=== PATIENT | female | born 2005 | race Caucasian/White ===

== ENCOUNTER 2023-07-19 14:58 | Inpatient (IN) | payer OTHER, SELFPAY ==
--- NOTE | ~2023-07-19 | CT_ITS ---
EXAMINATION: CT soft tissue neck w con DATE: 07/20/2023 11:43 INDICATION: Possible facial abscess TECHNIQUE: Computed tomography (CT) of the neck was performed with 75 cc of Omnipaque 350 intravenous contrast. The dose-length product (DLP) was 491.95 mGy-cm. Automated exposure control and iterative reconstruction technique were employed. COMPARISON: None FINDINGS: There is an approximately 1.5 cm soft tissue abscess or phlegmon overlying the body of the right mandible. There is a moderate amount of surrounding soft tissue edema. There is mild right subm andibular lymphadenopathy. The osseous structures are unremarkable. The vascular structures are gina l. IMPRESSION: 1. 1.5 cm soft tissue abscess or phlegmon overlying the right mandible. Reviewed, dictated and finalized at location A. IFI[employer] ACTIVITIES DIRECTOR
[2023-07-19 15:04] VITALS: BP 143/77; PULSE 101; RESP 18; TEMP 36.6; O2SAT 100
--- NOTE | 2023-07-19 15:10 | ED.GENADULT ---
HPI - General Adult General Chief complaint: Skin/Abscess/Foreign Body Stated complaint: abcess Time Seen by Provider: 07/19/23 15:02 Source: patient and family Mode of arrival: ambulatory Limitations: no limitations History of Present Illness HPI narrative: 18 yo F with history of cutting herself (not for suicide but as coping mechanism when she feels bad), presents to ED from urgent care due to infection in her right lower face. First started as a pimple in the right lower face/chin area that she picked on. Then developed into an infection with progressive swelling, erythema, pain. Went to Urgent Care and was prescribed Augmentin without improvement. Related Data Allergies Allergy/AdvReac Type Severity Reaction Status Date / Time No Known Allergies Allergy Verified 02/11/23 08:00 Review of Systems Constitutional: Constitutional: Reports as per HPI and Reports no additional constitutional complaints Eyes: Eyes: Reports as per HPI and Reports no additional eye complaints ENT: Reports system reviewed and no additional complaints, except as documented and Reports as per HPI Cardiovascular: Cardiovascular: Reports as per HPI and Reports no additional cardiovascular complaints Respiratory: Respiratory: Reports as per HPI and Reports no additional respiratory complaints Gastrointestinal: Gastrointestinal: Reports as per HPI and Reports no additional gastrointestinal complaints Genitourinary: Genitourinary: Reports as per HPI Musculoskeletal: Musculoskeletal: Reports no additional musculoskeletal complaints and Reports as per HPI Integumentary/Breasts: Skin/Breast: Reports system reviewed and no additional complaints, except as docu and Reports as per HPI Neurologic: Reports system reviewed and no additional complaints, except as documented and Reports as per HPI Psychiatric: Psychiatric: Reports no additional psychiatric complaints and Reports as per HPI Endocrine: Endocrine: Reports no additional endocrine complaints and Reports as per HPI Hematologic/Lymphatic: Hematologic/Lymphatic: Reports no additional hematologic/lymphatic complaints and Reports as per HPI Allergic/Immunologic: Allergic/Immunologic: Reports no additional allergic/immunologic complaints and Reports as per HPI PMFSH Social History Social History Smoking status: Never smoker Alcohol intake: never Substance use: current Substance use type: marijuana Living arrangements: with family Gender identity (if verbalized by the patient): Female Exam Const: General: cooperative, healthy appearing, comfortable, no acute distress, well developed, alert, awake, average body habitus and well nourished Nutritional Appearance: average body habitus and well nourished Orientation/consciousness: oriented to person, oriented to place and oriented to time Limitations: no limitations HENMT: Head: normal to inspection Ears: hearing grossly normal bilaterally, external ears normal and TM's normal bilaterally Face/Nose/Sinus: Normal external nose present, Normal nares present, No nasal polyps present, Normal nasal mucous membranes and turbinates present, Normal septum present, No nasal discharge present, normal facial exam, sinuses nontender and face symmetric Face and sinus: normal facial exam, sinuses nontender and face symmetric Mouth: Yes Normal oral and palatal mucosa present, Yes lip normal, Yes tongue normal, Yes Normal salivary glands and ducts present, Yes oropharynx normal and Yes moist mucous membranes Teeth and gingiva: dentition normal and gingiva normal Throat: posterior oropharynx normal, tonsils normal and uvula midline Other: Swelling, redness, induration in the right lower face Eyes: General: appearance normal, both eyes and all related structures Eyelids: eyelids normal Conjunctivae: conjunctivae normal Sclera: sclerae normal Cornea: corneas normal Pupils: Equal, round and lisy
[2023-07-19] MEDS: MORPHINE SULFATE (*CRX) 4 MG/ML INJ IV PUSH (15:39)
[2023-07-19 15:49] LABS: Basophils Absolute Auto 0.04 K/mm3 (0.00-0.10); Basophils Percent Auto 0.3 % (0.0-1.0); Eosinophils Absolute Auto 0.17 K/mm3 (0.02-0.50); Eosinophils Percent Auto 1.4 % (1.0-6.0); Hematocrit 41.8 % (35.0-49.0); Hemoglobin 13.7 g/dL (12.0-15.0); Immature Granulocyte Absolute 0.05 K/mm3 (0.00-0.00); Immature Granulocyte Percent A 0.4 % (0.0-0.0); Lymphocytes Absolute Auto 1.77 K/mm3 (1.10-4.50); Lymphocytes Percent Auto 14.9 % (18.0-42.0); Mean Corpuscular HGB Conc 32.8 g/dL (32.0-36.0); Mean Corpuscular Hemoglobin 29.8 pg (27.0-31.0); Mean Corpuscular Volume 91.1 fL (78.0-102.0); Mean Platelet Volume 10.4 fl (9.2-11.8); Monocytes Absolute Auto 0.67 K/mm3 (0.10-0.90); Monocytes Percent Auto 5.7 % (2.0-11.0); Neutrophils Absolute Auto 9.1 K/mm3 (1.7-7.2); Neutrophils Percent Auto 77.3 % (50.0-70.0); Platelet Count Result 400 K/mm3 (150-420); Red Blood Count 4.59 M/mm3 (4.20-5.40); Red Cell Distribution Width 12.5 % (11.6-14.4); White Blood Count 11.8 K/mm3 (4.8-10.8)
[2023-07-19] MEDS: MORPHINE SULFATE (*CRX) 2 MG/ML INJ IV PUSH (15:55)
[2023-07-19 15:58] LABS: Alanine Aminotransferase 38 U/L (14-59); Albumin Level 3.6 g/dL (3.4-5.0); Alkaline Phosphatase 80 U/L (46-116); Anion Gap 9 mmol/L (8-16); Aspartate Amino Transferase 22 U/L (15-37); Bilirubin,Total 0.7 mg/dL (0.00-1.00); Blood Urea Nitrogen 12 mg/dL (7-18); Calcium 8.5 mg/dL (8.5-10.1); Carbon Dioxide 30 mmol/L (21-32); Chloride 99 mmol/L (98-108); Estimated CRCL calculation 69 ml/min; Estimated Glomerular Filt Rate > 60; Glucose 253 mg/dL (70-99); Osmolality Calculated 294 mOsm/kg (285-295); Potassium 3.8 mmol/L (3.5-5.1); Sodium 138 mmol/L (136-145); Total Protein 8.3 g/dL (6.4-8.2)
[2023-07-19 16:30] VITALS: BP 96/52; PULSE 87; RESP 20; TEMP 37.2; O2SAT 98
[2023-07-19 16:36] VITALS: PULSE 105; RESP 18; O2SAT 100
--- NOTE | 2023-07-19 16:45 | PC.NURSE ---
Patient arrived to unit in w/c from ED. Patient able to transfer from w/c to bed without assist. Patient educated on isolation practices, call light, bed controls, hospital policies, including rapid response, visiting hours, and fall precautions. Patient and her mother voiced understanding. Patient has a cell phone, and clothes. No other personal items noted.
[2023-07-19 16:53] VITALS: BMI 24.7
[2023-07-19 17:07] LABS: Hemoglobin A1C 5.5 % (<5.7)
[2023-07-19] MEDS: MORPHINE SULFATE (*CRX) 2 MG/ML INJ 4 MG IV PUSH (17:09)
[2023-07-19 17:10] LABS: Lactic Acid Reflex 1.4 mmol/L (0.4-2.0)
[2023-07-19 19:57] VITALS: TEMP 39
[2023-07-19] MEDS: ACETAMINOPHEN 325 MG TABLET 650 MG PO (19:57)
[2023-07-19 20:00] VITALS: PULSE 127; RESP 18; O2SAT 100
--- NOTE | 2023-07-19 20:00 | PC.NURSE ---
Pt temp noted to be 102.2, PRN PO Tylenol given per order, cool rag and ice pack given for comfort, Pulse noted to be 127. Snack given. Will recheck VS.
[2023-07-19 20:52] VITALS: TEMP 37.6
--- NOTE | 2023-07-19 21:25 | PC.NURSE ---
Pt aware of negative test, teaching given on interaction between contraceptives and antibiotics, patient aware to use alternate barrier method of BC.
[2023-07-19 21:50] LABS: Pregnancy On Board Control Positive; Urine Pregnancy Test Negative
[2023-07-19] MEDS: LACTATED RINGERS 1,000 ML 999 ML IV CONT (22:16)
[2023-07-19] MEDS: SODIUM CHLORIDE 0.9% IV 1,000 ML 999 ML IV CONT (22:17)
[2023-07-19 22:27] LABS: Glucose Point of Care 158 mg/dl (65-105)
[2023-07-20] VITALS: BP 118/72; PULSE 120; RESP 17; TEMP 36.8; O2SAT 100
[2023-07-20 00:32] VITALS: PULSE 98
--- NOTE | 2023-07-20 06:51 | PC.NURSE ---
Patient was running a fever of 102 with a HR of 127 at 1999. Patient was given tylenol, and fever came down to 99.7, with HR of 120. SALES SERVICE PROFESSIONAL was notified, and ordered 2L bolus of normal saline and lactated ringers. Temperature came down to 98.2, with HR of 98. Patient was given education regarding control and its efficacy on antibiotics. Patient slept well.
[2023-07-20 08:00] VITALS: BP 107/69; PULSE 101; RESP 16; TEMP 37.2; O2SAT 99
[2023-07-20 08:01] LABS: Basophils Absolute Auto 0.03 K/mm3 (0.00-0.10); Basophils Percent Auto 0.3 % (0.0-1.0); Eosinophils Percent Auto 0.9 % (1.0-6.0); Hematocrit 34.3 % (35.0-49.0); Hemoglobin 11.4 g/dL (12.0-15.0); Immature Granulocyte Absolute 0.04 K/mm3 (0.00-0.00); Immature Granulocyte Percent A 0.4 % (0.0-0.0); Lymphocytes Absolute Auto 2.08 K/mm3 (1.10-4.50); Lymphocytes Percent Auto 19.5 % (18.0-42.0); Mean Corpuscular HGB Conc 33.2 g/dL (32.0-36.0); Mean Corpuscular Hemoglobin 30.2 pg (27.0-31.0); Mean Corpuscular Volume 90.7 fL (78.0-102.0); Mean Platelet Volume 10.7 fl (9.2-11.8); Monocytes Absolute Auto 0.87 K/mm3 (0.10-0.90); Monocytes Percent Auto 8.2 % (2.0-11.0); Neutrophils Absolute Auto 7.6 K/mm3 (1.7-7.2); Neutrophils Percent Auto 70.7 % (50.0-70.0); Platelet Count Result 320 K/mm3 (150-420); Red Blood Count 3.78 M/mm3 (4.20-5.40); Red Cell Distribution Width 12.4 % (11.6-14.4); White Blood Count 10.7 K/mm3 (4.8-10.8)
[2023-07-20 08:17] LABS: Alanine Aminotransferase 24 U/L (14-59); Albumin Level 2.7 g/dL (3.4-5.0); Alkaline Phosphatase 61 U/L (46-116); Anion Gap 5 mmol/L (8-16); Aspartate Amino Transferase 13 U/L (15-37); Bilirubin,Total 0.9 mg/dL (0.00-1.00); Blood Urea Nitrogen 6 mg/dL (7-18); Calcium 8.4 mg/dL (8.5-10.1); Carbon Dioxide 31 mmol/L (21-32); Chloride 103 mmol/L (98-108); Estimated CRCL calculation 79 ml/min; Estimated Glomerular Filt Rate > 60; Glucose 146 mg/dL (70-99); Osmolality Calculated 288 mOsm/kg (285-295); Potassium 3.8 mmol/L (3.5-5.1); Sodium 139 mmol/L (136-145); Total Protein 6.5 g/dL (6.4-8.2)
[2023-07-20] MEDS: HYDROcodone/acetaminophen (*CRX) 5-325 MG TABLET 1 TAB PO (08:47)
--- NOTE | 2023-07-20 08:58 | PM.IMHP ---
H&P: HPI History of Present Illness Date/Time: 07/20/23 08:58 Chief Complaint: Facial abscess Narrative: This is a previously healthy 18-year-old female patient who is admitted to the hospital due to right chin/face abscess that started on 07/15 and patient states she kept picking at it. Patient came to the emergency department last night and had incision and drainage of right chin abscess completed in the emergency department. She was febrile and tachycardic. White blood cell count elevated. Patient was started on vancomycin by ED physician and she was admitted to the floor for IV antibiotics and observation. Patient continued to be febrile overnight. She received 2 L of IV fluids bolus due to sustained tachycardia despite fever control. Patient reports she is able to eat and drink normally. She has no difficulty breathing or swallowing. Patient reports no intraoral drainage or break in the skin inside the mouth. Patient denies any swelling under the tongue or tenderness to palpation under the tongue. Patient denies any vision changes or pain with extraocular movements. She reports normal phonation from the throat, muffling noted due to oral swelling. No sore throat. No tenderness to palpation of the neck, right sided cervical lymphadenopathy noted. Buccal swelling and firmness with significant tenderness to palpation. Concern for buccal abscess. No mastoid swelling/tenderness. Continued wound drainage from I&D site noted. Wound culture and blood cultures drawn/in process. Patient denies any chest pain, breathing problems, nausea/vomiting, constipation/diarrhea, leg pain/swelling. Urine is negative. WBC trending downward. Ordered CT soft tissue neck with contrast to look for deeper space abscess that would benefit from facial surgery. Added IV dexamethasone and IV Unasyn orders. Review of Systems Review of Systems: All systems reviewed & are unremarkable except as noted in HPI and below [facility] Family History Family History Other Diabetes mellitus Social History Social History Smoking status: Never smoker Second hand tobacco smoke exposure: Yes Alcohol intake: current Substance use: current Substance use type: marijuana Last use: 07/16/2023 Lack of Transportation: YES Lack of Food: Sometimes True Current Housing: I Have Housing Concerned About Future Housing: YES Difficulty Paying Gas/Electric Bills: No Difficulty Paying for Meds: YES Currently Unemployed: YES Education: High School Diploma/GED Difficulty w/ Childcare or Family Care: No Living arrangements: with family Gender identity (if verbalized by the patient): Female Spiritual care concerns: No Meds Home Medications and Allergies Home Medications Medication Instructions Recorded Confirmed Type No Home Medications 07/19/23 07/19/23 History Allergies Allergy/AdvReac Type Severity Reaction Status Date / Time No Known Allergies Allergy Verified 02/11/23 08:00 Vital Signs Vital Signs - 24 hr 07/19/23 15:04 07/19/23 16:36 07/19/23 16:30 Temperature 36.6 C 37.2 C Pulse Rate 101 H 105 H 87 Respiratory Rate 18 18 20 Blood Pressure 143/77 H 96/52 L Pulse Oximetry 100 100 98 Oxygen Delivery Room Air Room Air Room Air 07/19/23 19:57 07/19/23 20:52 07/19/23 20:00 Temperature 39.0 C H 37.6 C H Pulse Rate 127 H Respiratory Rate 18 Blood Pressure Pulse Oximetry 100 Oxygen Delivery Room Air 07/20/23 00:00 07/20/23 00:32 07/20/23 08:00 Temperature 36.8 C 37.2 C Pulse Rate 120 H 98 101 H Respiratory Rate 17 16 Blood Pressure 118/72 107/69 Pulse Oximetry 100 99 Oxygen Delivery Room Air Room Air Exam Const: General: cooperative, healthy appearing, comfortable, no acute distress, well developed, alert, awake, average body habitus and well nouris
[2023-07-20] MEDS: VANCOMYCIN 1,250 MG/NS 250 ML 1,250 MG/250 ML BAG 166.67 MG IVPB (10:30)
--- NOTE | 2023-07-20 11:21 | PC.NURSE ---
Patient leaving unit for CT scan.
--- NOTE | 2023-07-20 11:35 | PC.NURSE ---
Patient returned to unit from CT scan.
[2023-07-20] MEDS: AMPICILLIN SULB 3 GM/NS 100 ML 3 GM/100 ML VIAL IVPB (12:28)
--- NOTE | 2023-07-20 12:31 | PM.TDS ---
Transfer Discharge Sum: Prov Provider Date of admission: 07/19/23 16:24 Primary care physician: Jenny Vargas NP Admitting clinician: Deion Mendez MD Attending physician on admission: Kenrick Mendez Attending physician on discharge: Kenrick Mendez Discharging clinician: Ravindra Burnette Anticipated date of transfer: 07/20/23 Receiving physician/facility: Dr. Arshad, admitting Hospitalist. Dr. Tomer Neumann, plastic life skills consultant at [facility] DS: Admitting Diagnosis Discharge Date 07/20/2023 Admitting Diagnosis Facial abscess, facial cellulitis, hyperglycemia DS: Discharge Diagnosis Discharge Diagnosis (1) Facial abscess: Code(s): L02.01 - Cutaneous abscess of face Status: Acute (2) Facial cellulitis: Code(s): L03.211 - Cellulitis of face Status: Acute (3) Hyperglycemia: Code(s): R73.9 - Hyperglycemia, unspecified Status: Acute Plan Transfer to [facility] for facial surgery consult. Patient accepted by hospitalist Dr. Arsahd Transfer Discharge Sum: Med Medications Active and Home Medications: Home Medications No Home Medications 07/19/23 [History Confirmed 07/19/23] Active Medications Acetaminophen (Acetaminophen 325 Mg Tablet) 650 mg PO Q4H PRN PRN Reason: Mild Pain (1-3) or Fever Last Admin: 07/19/23 19:57 Dose: 650 mg Hydrocodone Bitart/Acetaminophen (Hydrocodone/Acetaminophen (*Crx) 5-325 Mg Tablet) 1 tab PO Q4H PRN PRN Reason: Moderate Pain (4-6) Last Admin: 07/20/23 08:47 Dose: 1 tab Bisacodyl (Bisacodyl 5 Mg Tablet Ec) 5 mg PO DAILY PRN PRN Reason: Constipation Vancomycin HCl (Vancomycin 1,250 Mg/Ns 250 Ml) 1,250 mg in 250 mls @ 166.667 mls/hr IVPB Q18H YANCY Last Infusion: 07/20/23 12:25 Dose: Infused Ampicillin Sodium/Sulbactam Sodium (Unasyn 3 Gm/Ns 100 Ml) 3 gm in 100 mls @ 200 mls/hr IVPB Q6H YANCY Last Admin: 07/20/23 12:28 Dose: 200 mls/hr Melatonin (Melatonin 5 Mg Tablet) 5 mg PO HS PRN PRN Reason: insomnia Morphine Sulfate (Morphine Sulfate (*Crx) 2 Mg/Ml Inj) 4 mg IV PUSH Q4H PRN PRN Reason: Pain Rated 7-10 Last Admin: 07/19/23 17:09 Dose: 4 mg Naloxone HCl (Naloxone Hcl 0.4 Mg/Ml Vial) 0.1 mg IV PUSH Q2M PRN PRN Reason: Opiate Reversal Transfer Discharge Sum: Hosp Hospital Course Hospital course: Rand Gonzalez is a previously healthy 18-year-old female patient who is admitted to the hospital due to right chin/face abscess that started on 07/15 and patient states she kept picking at it.? Patient came to the emergency department last night and had incision and drainage of right chin abscess completed in the emergency department.? She was febrile and tachycardic.? White blood cell count elevated.? Patient was started on vancomycin by ED physician and she was admitted to the floor for IV antibiotics and observation.? Patient continued to be febrile overnight.? She received 2 L of IV fluids bolus due to sustained tachycardia despite fever control.? Patient reports she is able to eat and drink normally.? She has no difficulty breathing or swallowing.? Patient reports no intraoral drainage or break in the skin inside the mouth.? Patient denies any swelling under the tongue or tenderness to palpation under the tongue.? Patient denies any vision changes or pain with extraocular movements.? She reports normal phonation from the throat, muffling noted due to oral swelling.? No sore throat.? No tenderness to palpation of the neck, right sided cervical lymphadenopathy noted.? Buccal swelling and firmness with significant tenderness to palpation.? Concern for buccal abscess.? No mastoid swelling/tenderness.? Continued wound drainage from I&D site noted.? Wound culture and blood cultures drawn/in process.? Patient denies any chest pain, breathing problems, nausea/vomiting, constipation/diarrhea, leg pain/swelling.? Urine is negative.? WBC trending downward.? Ordered CT soft
--- NOTE | 2023-07-20 14:54 | PC.NURSE ---
Spoke with Carmita, the connect nurse for [facility] and gave patient's current VS and report. Patient will be going to Room [address] [facility].
--- NOTE | 2023-07-20 15:25 | PC.NURSE ---
SARA here to transfer patient to room 1144. Personal belongings sent with patient. Report given to ADA at [facility]. Patient's mother here at time of transfer and aware of where patient is going.
== END 2023-07-20 15:25 | disposition short-term general hospital (02) | DRG 603 ==
LOC: CHSED 16:21 → CHS2ND 16:28
PROVIDERS: Nurse Practitioner; Admitting Provider Internal Medicine; Emergency Provider Emergency Medicine; PCP Nurse Practitioner Family; Visit Provider Internal Medicine
DX: L02.01 Cutaneous abscess of face (principal); L03.211 Cellulitis of face; R73.9 Hyperglycemia, unspecified; R00.0 Tachycardia, unspecified
CPT/HCPCS: 10060; 36415; 70491; 80053; 81025; 82948; 83036; 83605; 83735; 85025; 87040; 87070; 87147; 87186; 87205; 96361; 96365; 96366; 96375; 96376; 99285; A9270; G0378; J0295; J1100; J2270; J3370; J7030; J7120; Q9967

== ENCOUNTER 2023-08-23 20:27 | Emergency (ER) | payer OTHER, SELFPAY ==
--- NOTE | ~2023-08-23 | CT_ITS ---
EXAMINATION: CT abdomen pelvis wo con DATE: 08/23/2023 21:32 INDICATION: RLQ PAIN SINCE WAKING UP THIS EVENING. TECHNIQUE: Computed tomography (CT) of the abdomen and pelvis was performed without intravenous contr ast. Automated exposure control and iterative reconstruction technique were employed. The dose-length product was 248.90 mGy-cm. COMPARISON: None. FINDINGS: Lower thorax: Partially visualized granuloma or lymph node in the lingula. Linear scar in the right l bill base. Liver: Normal. Biliary/Gallbladder: Gallbladder is normal. No bile duct dilation. Pancreas: No mass or duct dilation. Spleen: Normal. Adrenals:No mass. Kidneys: Mild right perinephric stranding. Nonobstructing 2 mm right upper pole and punctate lower po le calcifications. 4 mm calcification in the right UPJ. Moderate right pelviectasis and caliectasis. 6 mm nonobstructing left inferior pole stone. No suspicious mass or left hydronephrosis. GI tract: No small or large bowel dilation. Partially visualized appendix, visualized portions are no rmal. Mesentery/Peritoneum: No ascites, mass, or free air. Retroperitoneum: No mass. Pelvis: Retroverted uterus. Mostly empty urinary bladder. Trace free pelvic fluid, within physiologic range. Soft Tissues: Soft tissues and body wall unremarkable. Bones: No acute osseous finding. IMPRESSION: 4 mm right UPJ stone causing moderate obstructive uropathy. Reviewed, dictated and finalized at location K. PATROLLER
[2023-08-23 20:27] VITALS: BP 133/100; PULSE 97; RESP 20; TEMP 36.6; O2SAT 92
--- NOTE | 2023-08-23 20:41 | ED.ABDPAIN ---
HPI - Abdominal Pain General Chief Complaint: Abdominal Pain Stated Complaint: lower right quadrant pain Time Seen by Provider: 08/23/23 20:33 Source: patient Mode of arrival: ambulatory Limitations: no limitations History of Present Illness HPI narrative: Patient is a 18-year-old female with right lower quadrant pain. The pain started about an hour ago. She awoke from sleep and started to have this pain. MD elicited complaint: abdominal pain Pertinent past history: none Onset (ago): hour(s) (1) Pain Consistency: constant Location: RLQ Severity: severe Pain scale (0-10): 8 Quality: sharp Radiation: none Migration to: no migration Exacerbating factors: movement Relieving factors: nothing Associated symptoms: denies other symptoms Related Data Allergies Allergy/AdvReac Type Severity Reaction Status Date / Time No Known Allergies Allergy Verified 02/11/23 08:00 Review of Systems Review of Systems: All systems reviewed & are unremarkable except as noted in HPI and below Constitutional: Constitutional: Reports no additional constitutional complaints Eyes: Eyes: Reports no additional eye complaints ENT: Reports system reviewed and no additional complaints, except as documented Cardiovascular: Cardiovascular: Reports no additional cardiovascular complaints Respiratory: Respiratory: Reports no additional respiratory complaints Gastrointestinal: Gastrointestinal: Reports no additional gastrointestinal complaints Genitourinary: Genitourinary: Reports no additional female genitourinary complaints Musculoskeletal: Musculoskeletal: Reports no additional musculoskeletal complaints Integumentary/Breasts: Skin/Breast: Reports system reviewed and no additional complaints, except as docu Neurologic: Reports system reviewed and no additional complaints, except as documented Psychiatric: Psychiatric: Reports no additional psychiatric complaints Endocrine: Endocrine: Reports no additional endocrine complaints Hematologic/Lymphatic: Hematologic/Lymphatic: Reports no additional hematologic/lymphatic complaints Allergic/Immunologic: Allergic/Immunologic: Reports no additional allergic/immunologic complaints [facility] Family History Family History Other Diabetes mellitus Social History Social History Smoking status: Never smoker Second hand tobacco smoke exposure: Yes Alcohol intake: current Substance use: current Substance use type: marijuana Last use: 07/16/2023 Lack of Transportation: YES Lack of Food: Sometimes True Current Housing: I Have Housing Concerned About Future Housing: YES Difficulty Paying Gas/Electric Bills: No Difficulty Paying for Meds: YES Currently Unemployed: YES Education: High School Diploma/GED Difficulty w/ Childcare or Family Care: No Living arrangements: with family Gender identity (if verbalized by the patient): Female Spiritual care concerns: No Exam Const: General: healthy appearing Nutritional Appearance: well nourished Orientation/consciousness: patient oriented x3 HENMT: Head: normal to inspection Ears: external ears normal Face/Nose/Sinus: Normal external nose present Eyes: Conjunctivae: conjunctivae normal Pupils: Equal, round and reactive pupils present EOM: EOMs intact bilaterally Neck: Neck: normal visual inspection Chest: Chest palpation & inspection: normal inspection of the chest Resp: Effort & Inspection: normal respiratory effort and not labored Auscultation: clear to auscultation bilaterally and no crackles Cardio: Rate: regular rate Rhythm: regular rhythm Heart sounds: no murmurs GI: Inspection: non-distended GI Palp: Yes Soft to palpation, Yes Tenderness to palpation present (GI) ( Right lower quadrant), No Guarding due to palpation present (GI), No Rigid due to palpation, No Hernia present, No Palpable mass pr
[2023-08-23] MEDS: KETOROLAC (*BKC) 60 MG/2 ML VIAL IM (20:43)
[2023-08-23 21:27] LABS: Bilirubin Urine Negative (Negative); Blood Urine 3+ (Negative); Color Urine Yellow (Yellow); Glucose Urine UA Negative (Negative); Ketones Urine Trace (Negative); Leukocyte Esterase Ur Negative LEU/UL (Negative); Nitrate Urine Negative (Negative); Protein Urine 1+ (Negative); Specific Grav Ur >= 1.030 (1.010-1.020); Urobilinogen Urine 0.2 mg/dL (0.2-1.0)
[2023-08-23 21:28] LABS: Basophils Absolute Auto 0.03 K/mm3 (0.00-0.10); Basophils Percent Auto 0.3 % (0.0-1.0); Eosinophils Absolute Auto 0.01 K/mm3 (0.02-0.50); Eosinophils Percent Auto 0.1 % (1.0-6.0); Hematocrit 39.5 % (35.0-49.0); Hemoglobin 12.7 g/dL (12.0-15.0); Immature Granulocyte Absolute 0.03 K/mm3 (0.00-0.00); Immature Granulocyte Percent A 0.3 % (0.0-0.0); Lymphocytes Absolute Auto 1.35 K/mm3 (1.10-4.50); Lymphocytes Percent Auto 15.6 % (18.0-42.0); Mean Corpuscular HGB Conc 32.2 g/dL (32.0-36.0); Mean Corpuscular Hemoglobin 29.1 pg (27.0-31.0); Mean Corpuscular Volume 90.6 fL (78.0-102.0); Mean Platelet Volume 10.6 fl (9.2-11.8); Monocytes Absolute Auto 0.51 K/mm3 (0.10-0.90); Monocytes Percent Auto 5.9 % (2.0-11.0); Neutrophils Absolute Auto 6.7 K/mm3 (1.7-7.2); Neutrophils Percent Auto 77.8 % (50.0-70.0); Platelet Count Result 336 K/mm3 (150-420); Red Blood Count 4.36 M/mm3 (4.20-5.40); Red Cell Distribution Width 13.2 % (11.6-14.4); White Blood Count 8.6 K/mm3 (4.8-10.8)
[2023-08-23 21:41] LABS: Lactic Acid Reflex 1.1 mmol/L (0.4-2.0)
[2023-08-23 21:45] LABS: Add Urine Microscopic? YES; Appearance Urine Cloudy (Clear); RBC Urine >75 /hpf (0-2); Squamous Epithelial Cell Urine Few /hpf (Few)
[2023-08-23 21:46] LABS: Mucus Urine Few /lpf; Pregnancy On Board Control Positive; Urine Pregnancy Test Negative
[2023-08-23 21:48] LABS: Alanine Aminotransferase 22 U/L (14-59); Alkaline Phosphatase 69 U/L (46-116); Anion Gap 8 mmol/L (8-16); Aspartate Amino Transferase 17 U/L (15-37); Bilirubin,Total 0.7 mg/dL (0.00-1.00); Blood Urea Nitrogen 15 mg/dL (7-18); Calcium 9.1 mg/dL (8.5-10.1); Carbon Dioxide 33 mmol/L (21-32); Chloride 102 mmol/L (98-108); Estimated CRCL calculation 50 ml/min; Estimated Glomerular Filt Rate 60; Glucose 167 mg/dL (70-99); Lipase 36 U/L (16-77); Osmolality Calculated 300 mOsm/kg (285-295); Potassium 3.4 mmol/L (3.5-5.1); Sodium 143 mmol/L (136-145); Total Protein 7.8 g/dL (6.4-8.2)
--- NOTE | 2023-08-23 21:52 | PC.NURSE ---
Pt resting, remains essentially pain free at this time and ERP updated pt on results of CT. Will await call back for consult c urologist from [facility].
[2023-08-23 21:54] VITALS: BP 120/77; PULSE 96; RESP 18; TEMP 36.8; O2SAT 99
[2023-08-23] MEDS: POTASSIUM CHLORIDE 20 MEQ PACKET (FOR LIQUID) PO (22:28)
[2023-08-23] MEDS: TAMSULOSIN HCL 0.4 MG CAPSULE PO (22:28)
[2023-08-23 22:34] VITALS: BP 125/74; PULSE 80; RESP 18; TEMP 36.6; O2SAT 98
== END 2023-08-23 22:42 | disposition home or self-care (01) ==
PROVIDERS: Emergency Provider Emergency Medicine; PCP Nurse Practitioner Family
DX: N20.0 Calculus of kidney (principal)
CPT/HCPCS: 36415; 74176; 80053; 81001; 81025; 83605; 83690; 85025; 96372; 99284; A9270; J1885

== ENCOUNTER 2024-06-16 19:26 | Emergency (ER) | payer OTHER, SELFPAY ==
[2024-06-16 19:27] VITALS: BP 154/99; PULSE 96; RESP 18; TEMP 36.6; O2SAT 100
--- NOTE | 2024-06-16 19:31 | ED.DENTAL ---
HPI - Dental/Oral General Chief complaint: Dental/Oral Stated complaint: tooth pain Time Seen by Provider: 06/16/24 19:31 Source: patient Mode of arrival: ambulatory Limitations: no limitations History of Present Illness HPI Narrative: 19-year-old female presents to the ED 2 day history of -- right lower dental pain which radiates along the lower jaw. No fever or chills. Complaint: tooth pain Location: Tooth # (30) Onset (ago): day(s) ( Few days) Duration: constant Severity: severe Relieving factors: nothing Exacerbating factors: cold and heat Treatment prior to arrival: none Related Data Home Medications Medication Instructions Recorded Confirmed No Home Medications 06/16/24 06/16/24 Allergies Allergy/AdvReac Type Severity Reaction Status Date / Time No Known Allergies Allergy Verified 02/11/23 08:00 Review of Systems Review of Systems: All systems reviewed & are unremarkable except as noted in HPI and below PMFSH Family History Family History Other Diabetes mellitus Social History Social History Smoking status: Never smoker Second hand tobacco smoke exposure: Yes Alcohol intake: current Substance use: current Substance use type: marijuana Last use: 07/16/2023 Lack of Transportation: YES Lack of Food: Sometimes True Current Housing: I Have Housing Concerned About Future Housing: YES Difficulty Paying Gas/Electric Bills: No Difficulty Paying for Meds: YES Currently Unemployed: YES Education: High School Diploma/GED Difficulty w/ Childcare or Family Care: No Living arrangements: with family Gender identity (if verbalized by the patient): Female Spiritual care concerns: No Exam Narrative: vitals are stable. Blood pressure is 154/99. Const: General: no acute distress Nutritional Appearance: well nourished Orientation/consciousness: patient oriented x3 Limitations: no limitations HENMT: Head: normal to inspection Ears: external ears normal Face/Nose/Sinus: Normal external nose present Face and sinus: normal facial exam Mouth: Yes Normal oral and palatal mucosa present Teeth and gingiva: abnormal tooth and associated gingiva ( Patient points to tooth number 30. It is tender. No surrounding gingivi) Throat: posterior oropharynx normal Eyes: Conjunctivae: conjunctivae normal Pupils: Equal, round and reactive pupils present EOM: EOMs intact bilaterally Direct Ophthalmoscopy: no photophobia Neck: Neck: normal visual inspection, no lymphadenopathy and no meningeal signs Chest: Chest palpation & inspection: normal inspection of the chest Resp: Effort & Inspection: normal respiratory effort Auscultation: clear to auscultation bilaterally Cardio: Rate: regular rate Rhythm: regular rhythm GI: Auscultation: normal bowel sounds Other: tenderness/ rigidity /rebound. : General: Yes no CVA tenderness Back/Spine/Pelvis: Back: no CVA tenderness Skin: General skin exam: normal color Rashes: no rashes Wounds: no wounds Neuro: General: patient oriented x3, moves all extremities, no meningeal signs, no focal motor deficits and CN's II-XI intact bilaterally Cranial nerves: Yes Nystagmus not present Speech: normal speech Gait exam (Neuro): Normal gait present Extrem: General: normal to inspection and no clubbing, cyanosis or edema Psych: Mental Status: mental status grossly normal Affect: normal affect Attitude: cooperative Course Course Emergency Course: Dental pain- suspect she has a cavity Vital Signs Vital signs: Vital Signs Temperature 36.6 C 06/16/24 19:27 Pulse Rate 96 06/16/24 19:27 Respiratory Rate 18 06/16/24 19:27 Blood Pressure 154/99 H 06/16/24 19:27 Pulse Oximetry 100 06/16/24 19:27 Oxygen Delivery Room Air 06/16/24 19:27 Temperature 36.6 C 06/16/24 19:27 Pulse R
--- NOTE | 2024-06-16 19:39 | PC.NURSE ---
Dr Godfrey at the bedside
[2024-06-16] MEDS: HYDROcodone/acetaminophen (*CRX) 5-325 MG TABLET 1 TAB PO (19:52)
[2024-06-16] MEDS: AMOXICILLIN 500 MG CAPSULE 1000 MG PO (20:02)
[2024-06-16 20:14] VITALS: BP 148/88; PULSE 89; RESP 18; O2SAT 100
== END 2024-06-16 20:14 | disposition home or self-care (01) ==
PROVIDERS: Emergency Provider Internal Medicine Critical Care Medicine
DX: K08.89 Other specified disorders of teeth and supporting structures (principal)
CPT/HCPCS: 99283; A9270

== ENCOUNTER 2024-06-18 11:01 | Emergency (ER) | payer OTHER, MEDICAID, SELFPAY ==
[2024-06-18 11:04] VITALS: BP 139/91; PULSE 112; RESP 18; TEMP 36.6; O2SAT 100
--- NOTE | 2024-06-18 11:10 | ED_ITS ---
HPI - Dental/Oral General Chief complaint: Dental/Oral Stated complaint: medication rxn Source: patient Mode of arrival: ambulatory Limitations: no limitations History of Present Illness HPI Narrative: patient is a 19-year-old female with a right face pain/dental infection and on amoxicillin. She has taken 4 doses of amoxicillin and each time has nausea and vomiting and some abdominal discomfort. There has been not any issues without the amoxicillin and it only happens with the amoxicillin. MD Complaint: tooth pain Onset (ago): day(s) (5) Duration: constant Severity: moderate Severity scale (1-10): 4 Relieving factors: nothing Exacerbating factors: chewing, cold, heat and swallowing Context: history of dental caries Treatment prior to arrival: other ( Oral amoxicillin has been tried however nausea vomiting occurs; she has dentist on the ) Related Data Allergies Allergy/AdvReac Type Severity Reaction Status Date / Time amoxicillin AdvReac Nausea and Verified 06/18/24 11:16 Vomiting Review of Systems Review of Systems: All systems reviewed & are unremarkable except as noted in HPI and below Constitutional: Constitutional: Reports no additional constitutional complaints Eyes: Eyes: Reports no additional eye complaints ENT: Reports system reviewed and no additional complaints, except as docu mented Cardiovascular: Cardiovascular: Reports no additional cardiovascular complaints Respiratory: Respiratory: Reports no additional respiratory complaints Gastrointestinal: Gastrointestinal: Reports no additional gastrointestinal complaints Genitourinary: Genitourinary: Reports no additional female genitourinary complaints Musculoskeletal: Musculoskeletal: Reports no additional musculoskeletal complaints Integumentary/Breasts: Skin/Breast: Reports system reviewed and no additional complaints, except as docu Neurologic: Reports system reviewed and no additional complaints, except as documented Psychiatric: Psychiatric: Reports no additional psychiatric complaints Endocrine: Endocrine: Reports no additional endocrine complaints Hematologic/Lymphatic: Hematologic/Lymphatic: Reports no additional hematologic/lymphatic complaints Allergic/Immunologic: Allergic/Immunologic: Reports no additional allergic/immunologic complaints PMFSH Family History Family History Other Diabetes mellitus Social History Social History Smoking status: Never smoker Second hand tobacco smoke exposure: Yes Alcohol intake: current Substance use: current Substance use type: marijuana Last use: 07/16/2023 Lack of Transportation: YES Lack of Food: Sometimes True Current Housing: I Have Housing Concerned About Future Housing: YES Difficulty Paying Gas/Electric Bills: No Difficulty Paying for Meds: YES Currently Unemployed: YES Education: High School Diploma/GED Difficulty w/ Childcare or Family Care: No Living arrangements: with family Gender identity (if verbalized by the patient): Female Spiritual care concerns: No Exam Const: General: healthy appearing Nutritional Appearance: well nourished Orientation/consciousness: patient oriented x3 HENMT: Head: normal to inspection Ears: external ears normal Face/Nose/Sinus: Normal external nose present Other: right upper oral cavity has dental caries and local irritation; no abscesses Eyes: Conjunctivae: conjunctivae normal Pupils: Equal, round and reactive pupils present EOM: EOMs intact bilaterally Neck: Neck: normal visual inspection Chest: Chest palpation & inspection: normal inspection of the chest Resp: Effort & Inspection: normal respiratory effort and not labored Auscultation: clear to auscultation bilaterally and no crackles Cardio: Rate: regular rate Rhythm: regular rhythm Heart sounds: no murmurs GI: Inspection: non-distended Auscultation: normal bowel sounds and bowel sounds present : General: Yes bladder normal to palpation Back/Spine/Pelvis: Back: no CVA tenderness Skin: General skin exam: normal color Rashes: no rashes Wounds: no wounds Neuro: General: patient oriented x3 Cranial nerves: Yes Nystagmus not present Speech: normal speech Extrem: General: normal to inspection Psych: Mental Status: mental status grossly normal Affect: normal affect Attitude: cooperative Course Vital Signs Vital signs: Vital Signs Temperature 36.6 C 06/18/24 11:04 Pulse Rate 112 H 06/18/24 11:04 Respiratory Rate 18 06/18/24 11:04 Blood Pressure 139/91 H 06/18/24 11:04 Pulse Oximetry 100 06/18/24 11:04 Oxygen Delivery Room Air 06/18/24 11:04 Temperature 36.6 C 06/18/24 11:04 Pulse Rate 112 H 06/18/24 11:04 Respiratory Rate 18 06/18/24 11:04 Blood Pressure 139/91 H 06/18/24 11:04 Pulse Oximetry 100 06/18/24 11:04 Oxygen Delivery Room Air 06/18/24 11:04 MDM - Dental/Oral MDM Narrative Medical decision making narrative: patient is a 19-year-old female with right face dental issues and on amoxicillin. Amoxicillin causing nausea and vomiting. We will change to clindamycin. Discharge Plan Discharge Clinical Impression: Medication side effect Patient Disposition: Home, Self-Care Condition: Stable Instructions: Antibiotic Form, Antibiotic Medication Allergy (DC) Prescriptions: New clindamycin HCl 300 mg capsule 300 mg PO TID 10 Days Qty: 30 0RF Follow-up/Referrals: UNKNOWN,DOCTOR [Primary Care Provider] - Time of Disposition: 11:27
== END 2024-06-18 11:34 | disposition home or self-care (01) ==
LOC: CHSED 11:32
PROVIDERS: Emergency Provider Emergency Medicine
DX: R11.2 Nausea with vomiting, unspecified (principal); T36.0X5A Adverse effect of penicillins, initial encounter; K08.89 Other specified disorders of teeth and supporting structures
CPT/HCPCS: 99283

== ENCOUNTER 2024-09-11 23:42 | Emergency (ER) | payer MEDICAID, OTHER, SELFPAY ==
--- NOTE | ~2024-09-11 | CT_ITS ---
CLINICAL INDICATION: Right flank pain COMPARISON: 08/23/2023. TECHNIQUE: Multiple contiguous axial images of the abdomen and pelvis were performed without the admi nistration of intravenous contrast The dose-length product (DLP) was 506.35 mGy-cm. Automated exposure control and iterative reconstruction technique were employed. FINDINGS/OBSERVATIONS: Visualized lower thorax: The bilateral lung bases are clear. The heart is of normal size, without pericardial effusion. Small hiatal hernia is present. Liver: The liver demonstrates homogeneous attenuation and is not enlarged measuring 18 cm in longitudinal di mension. Gallbladder and biliary system: The gallbladder is only minimally distended, and otherwise unremarkable. Pancreas: Limited evaluation of the pancreas secondary to the lack of intravenous contrast. Spleen: The spleen demonstrates homogeneous attenuation and is not enlarged measuring 10 cm in longitudinal d imension. Kidneys: Nonobstructing calculi are present within the bilateral kidneys. Within the upper pole of the right kidney measuring 3 mm and at the lower pole of the left kidney kaushal suring 8 mm. The remainder of the bilateral kidneys are otherwise unremarkable, without hydronephrosis or addition al renal calculi. Adrenal glands: Unremarkable. Gastrointestinal tract: Fecal stasis within the colon. Significant gastric distention with retained gastric contents, without a source of outlet obstruction . Appendix: The air-filled appendix is of normal caliber. Vasculature: Unremarkable. Lymph nodes: No pathologically enlarged or morphologically suspicious lymph nodes within the retroperitoneum or at the root of the mesentery. Pelvic structures: The bladder is decompressed, and otherwise unremarkable. The uterus is anteverted and retroflexed. Body wall and musculoskeletal: Small fat-containing umbilical hernia. No significant degenerative disease within the lower thoracic or lumbosacral spine. IMPRESSION: Bilateral nonobstructing renal calculi. Reviewed, dictated and finalized at location A. [facility]
[2024-09-11 23:49] VITALS: BP 125/73; PULSE 88; RESP 18; TEMP 35.9; O2SAT 100
--- NOTE | 2024-09-11 23:57 | ED_ITS ---
HPI - General Adult General Chief complaint: Abdominal Pain Stated complaint: back/side pain Time Seen by Provider: 09/11/24 23:53 History of Present Illness HPI narrative: Rand is a 19F with a PMH of kidney stone that presented to the ED with right flank pain that started 3-4 hours ago. Pain is getting worse and only relieved with movement. It is accompanied by nausea. No dysuria or hematuria reported. No CP or dyspnea. Related Data Home Medications ?Medication ?Instructions ?Recorded ?Confirmed ?Last Taken ?Type No Home Medications 09/11/24 09/11/24 Unknown History Allergies Allergy/AdvReac Type Severity Reaction Status Date / Time amoxicillin AdvReac Nausea and Verified 09/11/24 23:48 Vomiting Review of Systems 2 Review of Systems: All systems reviewed & are unremarkable except as noted in HPI and below PMFSH Family History Family History Other Diabetes mellitus Social History Social History Smoking status: Never smoker Second hand tobacco smoke exposure: Yes Alcohol intake: current Substance use: current Substance use type: marijuana Last use: 07/16/2023 Lack of Transportation: YES Lack of Food: Sometimes True Current Housing: I Have Housing Concerned About Future Housing: YES Difficulty Paying Gas/Electric Bills: No Difficulty Paying for Meds: YES Currently Unemployed: YES Education: High School Diploma/GED Difficulty w/ Childcare or Family Care: No Living arrangements: with family Gender identity (if verbalized by the patient): Female Spiritual care concerns: No Exam 2 Const: General: cooperative, well developed, alert, awake and Physically active Orientation/consciousness: oriented to person, oriented to place and oriented to time Other: In mild distress constantly moving HENMT: Head: normal to inspection, normocephalic and atraumatic Ears: h earing grossly normal bilaterally and external ears normal Face/Nose/Sinus: N ormal external nose present Eyes: General: appearance normal, both eyes and all related structures P eriorbital: periorbital findings normal Sclera: sclerae normal Pupils: E qual, round and reactive pupils present Neck: Neck: normal visual inspection Chest: Chest palpation & inspection: normal inspection of the chest Resp: Effort & Inspection: normal respiratory effort, able to speak in complete sentences and no respiratory distress Auscultation: clear to auscultation bilaterally Cardio: Jugular venous distension: no JVD Rate: regular rate Rhythm: r egular rhythm GI: Inspection: normal to inspection GI Palp: Yes Soft to palpation A uscultation: normal bowel sounds : Other: Right CVA tenderness Skin: General skin exam: normal color and no rashes or lesions noted Neuro: General: oriented to person, oriented to place and oriented to time Cranial nerves: Yes Equal, round and reactive pupils present Extrem: General: normal to inspection Course Course Emergency Course: ORdered morphine and toradol for the pain as well as zofran and labs labs showed no leukocytosis, largely unremarkable chemistry panel with the exception of an elevated glucose. UA unremarkable. CT showed only renal caliculi and no hydronephrosis. There was a markedly distended stomach with a large amount of food. She was feeling much better and was pain free. Vital Signs Vital signs: Vital Signs Temperature 96.6 F L 09/11/24 23:49 Pulse Rate 88 09/11/24 23:49 Respiratory Rate 18 09/11/24 23:49 Blood Pressure 125/73 09/11/24 23:49 Pulse Oximetry 100 09/11/24 23:49 Oxygen Delivery Room Air 09/11/24 23:49 Temperature 96.6 F L 09/11/24 23:49 Pulse Rate 88 09/11/24 23:49 Respiratory Rate 18 09/11/24 23:49 Blood Pressure 125/73 09/11/24 23:49 Pulse Oximetry 100 09/11/24 23:49 Oxygen Delivery Room Air 09/11/24 23:49 Medical Decision Making Vital Signs Vital Signs: Vital Signs Temperature 96.6 F L 09/11/24 23:49 Pulse Rate 88 09/11/24 23:49 Respiratory Rate 18 09/11/24 23:49 Blood Pressure 125/73 09/11/24 23:49 Pulse Oximetry 100 09/11/24 23:49 Oxygen Delivery Room Air 09/11/24 23:49 Temperature 96.6 F L 09/11/24 23:49 Pulse Rate 88 09/11/24 23:49 Respiratory Rate 18 09/11/24 23:49 Blood Pressure 125/73 09/11/24 23:49 Pulse Oximetry 100 09/11/24 23:49 Oxygen Delivery Room Air 09/11/24 23:49 Lab Data 09/11/24 23:53 09/11/24 23:53 Labs: Lab Results 09/11/24 09/11/24 Range/Units 23:53 23:56 WBC Pending RBC Pending Hgb Pending Hct Pending MCV Pending MCH Pending MCHC Pending RDW Pending Plt Count Pending MPV Pending Immature Gran % (Auto) Pending Neut % (Auto) Pending Lymph % (Auto) Pending [place] % (Auto) Pending Eos % (Auto) Pending Baso % (Auto) Pending Lymph # (Auto) Pending [place] # (Auto) Pending Eos # (Auto) Pending Baso # (Auto) Pending Abs Immat Gran (auto) Pending Absolute Neuts (auto) Pending Absolute Nucleated RBC Pending Nucleated RBC % Pending PT Pending INR Pending Sodium Pending Potassium Pending Chloride Pending Carbon Dioxide Pending Anion Gap Pending BUN Pending Creatinine Pending Estim Creat Clear Calc Pending Estimated GFR Pending Glucose Pending Calculated Osmolality Pending Calcium Pending Total Bilirubin Pending AST Pending ALT Pending Alkaline Phosphatase Pending Total Protein Pending Albumin Pending Lipase Pending Urine Color Pending Urine Appearance Pending Urine pH Pending Ur Specific [place] Pending Urine Protein Pending Urine Glucose (UA) Pending Urine Ketones Pending Ur Blood (Man) Pending Urine Nitrate Pending Urine Bilirubin Pending Urine Urobilinogen Pending Leukocyte Esterase Rfl Pending Urine Test Negative Discharge Plan Discharge Clinical Impression: Acute flank pain, Acute hyperglycemia Patient Disposition: Home, Self-Care Condition: Stable Instructions: Abdominal Pain (ED) Additional Instructions: Please make an appointment with a primary care provider to look further into your elevated glucose. Patient Language: [place] Prescriptions: No Action No Home Medications Follow-up/Referrals: UNKNOWN,DOCTOR [Primary Care Provider] -
[2024-09-12 00:12] LABS: Pregnancy On Board Control Positive; Urine Pregnancy Test Negative
[2024-09-12] MEDS: ONDANSETRON INJ 4 MG/2 ML VIAL IV PUSH (00:22)
[2024-09-12] MEDS: KETOROLAC 15 MG/ML VIAL (*BKC) IV PUSH (00:23)
[2024-09-12] MEDS: MORPHINE SULFATE (*CRX) 4 MG/ML INJ IV PUSH (00:24)
[2024-09-12 00:48] LABS: Basophils Absolute Auto 0.06 K/mm3 (0.00-0.10); Basophils Percent Auto 0.6 % (0.0-1.0); Eosinophils Absolute Auto 0.11 K/mm3 (0.02-0.50); Eosinophils Percent Auto 1.2 % (1.0-6.0); Hematocrit 40.6 % (35.0-49.0); Hemoglobin 13.8 g/dL (12.0-15.0); Immature Granulocyte Absolute 0.03 K/mm3 (0.00-0.00); Immature Granulocyte Percent A 0.3 % (0.0-0.0); Lymphocytes Percent Auto 18.3 % (18.0-42.0); Mean Corpuscular Hemoglobin 30.8 pg (27.0-31.0); Mean Corpuscular Volume 90.6 fL (78.0-102.0); Mean Platelet Volume 10.4 fl (9.2-11.8); Monocytes Absolute Auto 0.71 K/mm3 (0.10-0.90); Monocytes Percent Auto 7.6 % (2.0-11.0); Neutrophils Absolute Auto 6.68 K/mm3 (1.70-7.20); Platelet Count Result 394 K/mm3 (150-420); Red Blood Count 4.48 M/mm3 (4.20-5.40); Red Cell Distribution Width 11.9 % (11.6-14.4); White Blood Count 9.3 K/mm3 (4.8-10.8)
[2024-09-12 00:50] LABS: Bilirubin Urine Negative (Negative); Blood Urine Negative (Negative); Color Urine Light Yellow (Yellow); Glucose Urine UA Negative (Negative); Ketones Urine Negative (Negative); Leukocyte Esterase Ur Negative LEU/UL (Negative); Nitrate Urine Negative (Negative); Protein Urine Negative (Negative); Urobilinogen Urine 0.2 mg/dL (0.2-1.0)
[2024-09-12 01:01] LABS: INR 0.9; Prothrombin Time 9.9 Seconds (9.50-12.1)
[2024-09-12 01:06] LABS: Alanine Aminotransferase 18 U/L (14-59); Albumin Level 3.9 g/dL (3.4-5.0); Alkaline Phosphatase 92 U/L (46-116); Anion Gap 10 mmol/L (4-12); Aspartate Amino Transferase 18 U/L (15-37); Bilirubin,Total 0.8 mg/dL (0.00-1.00); Blood Urea Nitrogen 15 mg/dL (7-18); Calcium 8.9 mg/dL (8.5-10.1); Carbon Dioxide 29 mmol/L (21-32); Chloride 101 mmol/L (98-108); Estimated CRCL calculation 96 ml/min; Estimated Glomerular Filt Rate > 60; Glucose 177 mg/dL (70-99); Lipase 66 U/L (16-77); Osmolality Calculated 294 mOsm/kg (285-295); Sodium 140 mmol/L (136-145); Total Protein 7.6 g/dL (6.4-8.2)
[2024-09-12 01:10] LABS: Add Urine Microscopic? NO; Appearance Urine Clear (Clear)
[2024-09-12 02:36] VITALS: BP 100/71; PULSE 70; RESP 18; TEMP 36.7; O2SAT 100
== END 2024-09-12 02:42 | disposition home or self-care (01) ==
PROVIDERS: Emergency Provider Family Medicine
DX: R10.9 Unspecified abdominal pain (principal); R73.9 Hyperglycemia, unspecified
CPT/HCPCS: 36415; 74176; 80053; 81003; 81025; 83690; 85025; 85610; 96374; 96375; 99284; J1885; J2270; J2405